=== PATIENT | female | born 1995 | race Asian ===

== ENCOUNTER 2022-10-17 17:36 | Emergency (ER) | payer OTHER ==
[2022-10-17 17:58] VITALS: BP 128/87; PULSE 90; RESP 18; TEMP 97.9; BMI 25.7
== END 2022-10-17 20:48 | disposition home or self-care (01) ==
LOC: JER 17:36 → JERFT 17:36
DX: O26.891 Other specified pregnancy related conditions, first trimester (principal); M94.0 Chondrocostal junction syndrome [Tietze]; Z3A.16 16 weeks gestation of pregnancy
CPT/HCPCS: 99283-25

== ENCOUNTER 2023-03-24 10:37 | Inpatient (IN) | payer OTHER ==
[2023-03-24] MEDS ORDERED: LACTATED RINGERS SOLUTION 1,000 ML/1,000 ML INFUS.BAG IV SCH (12:30)
[2023-03-24 12:32] LABS: BASO % 0.4 % (0-2.0); EOS % 0.7 % (0-4.5); HEMATOCRIT 40.6 % (32.4-45.2); HEMOGLOBIN 13.2 GM/dL (10.7-15.3); LYMPH % 15.3 % (8-40); MCH 28.7 pg (25.7-33.7); MCHC 32.5 g/dl (32.0-36.0); MEAN CELL VOLUME 88.4 fl (80-96); MONO % 7.3 % (3.8-10.2); NEUT % 76.3 % (42.8-82.8); PLATELET COUNT 279 10^3/uL (134-434); RBC 4.59 M/mm3 (3.60-5.2); RDW 14.1 % (11.6-15.6); WHITE BLOOD COUNT 12.4 K/mm3 (4.0-10.0)
[2023-03-24 12:38] VITALS: BMI 31.6
[2023-03-24 12:49] LABS: INR 0.97 (0.83-1.09); PROTHROMBIN TIME (PATIENT) 11.2 SEC (9.7-13.0)
[2023-03-24 12:51] LABS: POTASSIUM 3.9 mmol/L (3.5-5.1)
[2023-03-24 12:52] LABS: ACTIVATED PTT 32.7 SECONDS (25.2-36.5)
[2023-03-24 12:53] LABS: CALCIUM 9.6 mg/dL (8.5-10.1)
[2023-03-24 12:57] LABS: CREATININE 0.5 mg/dL (0.55-1.3)
[2023-03-24] MEDS: FENTANYL/BUPIVACAINE/NS/PF - PCEA - 50 ML DISP.SYRIN EP SCH ×3 (13:33→20:00)
[2023-03-24] MEDS ORDERED: FENTANYL/BUPIVACAINE/NS/PF - PCEA - 50 ML DISP.SYRIN EP ONE ×3 (13:39→20:02)
[2023-03-24 13:46] LABS: HIV INTERPRETATION NEGATIVE (NEGATIVE)
[2023-03-24] MEDS ORDERED: NALOXONE HCL 0.4 MG/ML VIAL IVPUSH PRN (13:51)
[2023-03-24] MEDS ORDERED: ELECTROLYTE-148 SOLN 1,000 ML IV SCH ×2 (15:30→16:31)
[2023-03-24] MEDS ORDERED: ACETAMINOPHEN 325 MG TABLET (FP) ONE (19:11)
[2023-03-24] MEDS ORDERED: AMPICILLIN SODIUM 2 GM VIAL ONE (19:12)
[2023-03-24] MEDS ORDERED: ACETAMINOPHEN 325 MG TABLET (FP) PO ONE (19:30)
[2023-03-24] MEDS ORDERED: AMPICILLIN SODIUM 2 GM VIAL IVPB SCH (19:30)
[2023-03-24] MEDS ORDERED: GENTAMICIN IVPB ONE (19:30)
[2023-03-24] MEDS ORDERED: SODIUM CHLORIDE IVPB ONE (19:30)
[2023-03-24] MEDS ORDERED: LIDOCAINE HCL 1% PRESERVATIVE FREE - 30ML VIAL ONE (20:38)
[2023-03-24] MEDS ORDERED: OXYTOCIN 20 UNITS in 0.9% NS 20 UNIT/1,000 ML INFUS.BAG IV ONE (20:38)
[2023-03-24] MEDS ORDERED: OXYTOCIN 30 UNITS in 0.9% NS 30 UNIT/500 ML INFUS.BAG IVPB SCH (22:00)
[2023-03-24] MEDS ORDERED: OXYTOCIN 30 UNITS in 0.9% NS 30 UNIT/500 ML INFUS.BAG IVPB ONE (23:13)
[2023-03-25] MEDS ORDERED: BENZOCAINE 20% 57 GM BOTTLE TP PRN (00:53)
[2023-03-25] MEDS ORDERED: BISACODYL 10 MG SUPP.RECT RC PRN (00:53)
[2023-03-25] MEDS ORDERED: BENZOCAINE 28 GM HEMORRHOIDAL OINTMENT TP PRN (00:53)
[2023-03-25] MEDS ORDERED: WITCH HAZEL 50% (TUCKS) 40 PAD/JAR PAD TP PRN (00:53)
[2023-03-25] MEDS ORDERED: METHYLERGONOVINE MALEATE 0.2 MG/1 ML AMP IM PRN (00:53)
[2023-03-25] MEDS ORDERED: ACETAMINOPHEN 325 MG TABLET (FP) PO PRN (00:58)
[2023-03-25] MEDS ORDERED: OXYTOCIN 20 UNITS in 0.9% NS 20 UNIT/1,000 ML INFUS.BAG IV SCH (01:00)
[2023-03-25] MEDS ORDERED: oxyCODONE HCL 5 MG TABLET ONE (01:46)
[2023-03-25] MEDS: oxyCODONE HCL 5 MG TABLET PO PRN ×2 (01:48→22:05)
[2023-03-25] MEDS: FERROUS SO4 325 MG TABLET (FP) PO SCH ×2 (08:19→18:03)
[2023-03-25] MEDS: IBUPROFEN 600 MG TABLET (FP) PO PRN ×2 (08:19→15:42)
[2023-03-25 08:48] LABS: HEMATOCRIT 34.2 % (32.4-45.2); HEMOGLOBIN 11.3 GM/dL (10.7-15.3); MCH 28.8 pg (25.7-33.7); MCHC 32.9 g/dl (32.0-36.0); MEAN CELL VOLUME 87.5 fl (80-96); MEAN PLT VOLUME 8.6 fl (7.5-11.1); PLATELET COUNT 228 10^3/uL (134-434); RBC 3.91 M/mm3 (3.60-5.2); RDW 14.4 % (11.6-15.6); WHITE BLOOD COUNT 25.5 K/mm3 (4.0-10.0)
[2023-03-25 10:19] LABS: ANISOCYTOSIS 0; MACROCYTOSIS 0
[2023-03-25] MEDS: CEFAZOLIN SODIUM 2 GM in DEXTROSE 5%-WATER 100 ML IVPB SCH ×2 (10:34→18:03)
[2023-03-25] MEDS: ACETAMINOPHEN 325 MG TABLET (FP) PO PRN ×2 (10:34→18:02)
[2023-03-25] MEDS: PRENATAL VITAMINS W/ FOLIC ACID TABLET (FP) PO SCH (10:34)
[2023-03-25 14:04] LABS: POC NITRAZINE POS
[2023-03-25 18:01] LABS: EPI CELLS 14 /uL (0-25.1); HYALINE CASTS 0 /uL (0-3.1); URINE APPEARANCE CLEAR; URINE BACTERIA 34 /uL (0-1359); URINE BILIRUBIN NEGATIVE (NEGATIVE); URINE COLOR YELLOW; URINE GLUCOSE (UA) NEGATIVE (NEGATIVE); URINE KETONE TRACE (NEGATIVE); URINE LEUK ESTERASE 1+ (NEGATIVE); URINE NITRITE NEGATIVE (NEGATIVE); URINE PROTEIN NEGATIVE (NEGATIVE); URINE RBC 1983 /uL (0-23.9); URINE UROBILINOGEN 0.2 mg/dL (0.2-1.0); URINE WBC 48 /uL (0-25.8)
[2023-03-25] MEDS: SENNOSIDES/DOCUSATE COMBO (SENNA PLUS) TABLET (UD) PO PRN (22:05)
[2023-03-26] MEDS: CEFAZOLIN SODIUM 2 GM in DEXTROSE 5%-WATER 100 ML IVPB SCH ×3 (01:54→18:20)
[2023-03-26 08:20] VITALS: RESP 18
[2023-03-26 08:46] LABS: HEMATOCRIT 33.8 % (32.4-45.2); HEMOGLOBIN 11.3 GM/dL (10.7-15.3); MCH 29.5 pg (25.7-33.7); MCHC 33.5 g/dl (32.0-36.0); MEAN CELL VOLUME 88.2 fl (80-96); MEAN PLT VOLUME 8.3 fl (7.5-11.1); PLATELET COUNT 232 10^3/uL (134-434); RBC 3.84 M/mm3 (3.60-5.2); RDW 14.6 % (11.6-15.6); WHITE BLOOD COUNT 17.3 K/mm3 (4.0-10.0)
[2023-03-26] MEDS: IBUPROFEN 600 MG TABLET (FP) PO PRN ×2 (09:59→18:20)
[2023-03-26] MEDS: FERROUS SO4 325 MG TABLET (FP) PO SCH ×2 (09:59→18:20)
[2023-03-26] MEDS: PRENATAL VITAMINS W/ FOLIC ACID TABLET (FP) PO SCH (09:59)
[2023-03-26] MEDS: oxyCODONE HCL 5 MG TABLET PO PRN (21:44)
[2023-03-26] MEDS: SENNOSIDES/DOCUSATE COMBO (SENNA PLUS) TABLET (UD) PO PRN (21:44)
[2023-03-27] MEDS: CEFAZOLIN SODIUM 2 GM in DEXTROSE 5%-WATER 100 ML IVPB SCH ×2 (01:53→10:57)
[2023-03-27] MEDS: IBUPROFEN 600 MG TABLET (FP) PO PRN ×2 (03:19→14:24)
[2023-03-27] MEDS: FERROUS SO4 325 MG TABLET (FP) PO SCH ×2 (09:33→17:30)
[2023-03-27] MEDS: PRENATAL VITAMINS W/ FOLIC ACID TABLET (FP) PO SCH (10:57)
[2023-03-27 11:17] VITALS: BP 112/74; PULSE 18; TEMP 98.6
== END 2023-03-27 18:40 | disposition home or self-care (01) | DRG 807 ==
LOC: JDEL 10:37 → JLDR 11:46 → J3W 03-25 02:47
PROVIDERS: ADMIT Obstetrics & Gynecology; ATTEND Obstetrics & Gynecology
PROC: 10E0XZZ Delivery of Products of Conception, External Approach (ICD-10-PCS; principal; 2023-03-24)
PROC: 0HQ9XZZ Repair Perineum Skin, External Approach (ICD-10-PCS; 2023-03-24)
DX: O70.0 First degree perineal laceration during delivery (principal); Z37.0 Single live birth; Z3A.39 39 weeks gestation of pregnancy
CPT/HCPCS: 36415; 59025; 80048; 81003; 83986-QW; 85025; 85027; 85610; 85730; 86780; 86850; 86900; 86901; 87086; 87389